=== PATIENT | male | born 1940 | race Caucasian/White ===

== ENCOUNTER → 2018-05-14 | Outpatient (CLI) | payer MEDICARE, BC, OTHER | LOC: M RAD 17:46 | DX: M50.31 Other cervical disc degeneration, high cervical region (principal); M50.221 Other cervical disc displacement at C4-C5 level; M50.21 Other cervical disc displacement, high cervical region; M50.222 Other cervical disc displacement at C5-C6 level; M50.223 Other cervical disc displacement at C6-C7 level; M50.23 Other cervical disc displacement, cervicothoracic region; M47.892 Other spondylosis, cervical region | CPT/HCPCS: 72141 ==